=== PATIENT | male | born 1950 | race Caucasian/White ===

== ENCOUNTER → 2019-12-18 | Outpatient (CLI) | payer MEDICARE ==
[~2019-12-18] MED LIST: ASPIRIN PO; ATORVASTATIN PO; CLOP75TA PO; FEROUS SULFATE PO; HYDROCHLOROTHIAZIDE PO; LISI-170 PO; MAGN420T PO; METFORMIN PO; OMEPRAZOLE PO; TAMS-11 PO
== END | disposition home or self-care (01) ==
LOC: STAR 11:27
PROVIDERS: ATTEND Anesthesiology
DX: Z01.812 Encounter for preprocedural laboratory examination (principal); Z20.828 Contact with and (suspected) exposure to other viral communicable diseases
CPT/HCPCS: 36415; 87635

== ENCOUNTER 2019-12-23 07:42 | Day surgery (SDC) | payer MEDICARE, OTHER ==
[~2019-12-23] VITALS: Ht 180.3 cm; Wt 91.0 kg
[2019-12-23] MEDS ORDERED: MIDAZOLAM 1 MG/ML, 2ML ONE (08:35)
[2019-12-23] MEDS ORDERED: FENTANYL PF 100 MCG/2ML ONE (08:35)
[2019-12-23 08:36] VITALS: BP 169/79
[2019-12-23] MEDS ORDERED: LACTATED RINGERS 1,000 ML IV SCH (08:39)
[2019-12-23] MEDS ORDERED: METFORMIN PO (08:47)
[2019-12-23] MEDS ORDERED: ATORVASTATIN PO (08:47)
[2019-12-23] MEDS ORDERED: OMEPRAZOLE PO (08:47)
[2019-12-23] MEDS ORDERED: CLOP75TA PO (08:47)
[2019-12-23] MEDS ORDERED: LISI-170 PO (08:47)
[2019-12-23] MEDS ORDERED: ASPIRIN PO (08:47)
[2019-12-23] MEDS ORDERED: FEROUS SULFATE PO (08:47)
[2019-12-23] MEDS ORDERED: MAGN420T PO (08:47)
[2019-12-23] MEDS ORDERED: HYDROCHLOROTHIAZIDE PO (08:47)
[2019-12-23] MEDS ORDERED: TAMS-11 PO (08:47)
[2019-12-23] MEDS ORDERED: CHLORHEXIDINE 15 ML UDC MM ONE (09:00)
[2019-12-23] MEDS ORDERED: PROPOFOL 50 ML ONE (09:05)
[2019-12-23 09:10] LABS: MEAN CORPUSCULAR HEMOGLOBIN 30.4 pg (27.5-34.5); MEAN CORPUSCULAR HGB CONC 32.2 g/dL (33.2-36.2); MEAN PLATELET VOLUME 7.8 fL (7.4-10.4); PLATELET COUNT 249 x10^3/uL (130-400); RED BLOOD COUNT 3.57 x10^6/uL (4.38-5.82); RED CELL DISTRIBUTION WIDTH 17.8 % (9.4-14.8)
[2019-12-23 09:21] LABS: BASOPHILS # (AUTO) 0.08 x10^3/uL (0-0.1); BASOPHILS % (AUTO) 1 % (0-1); EOSINOPHILS # (AUTO) 0.19 x10^3/uL (0-0.4); EOSINOPHILS % (AUTO) 3 % (1-7); LYMPHOCYTES # (AUTO) 1.05 x10^3/uL (1-3.4); LYMPHOCYTES % (AUTO) 16 % (22-44); MONOCYTES # (AUTO) 0.46 x10^3/uL (0.2-0.8); MONOCYTES % (AUTO) 7 % (2-9); NEUTROPHILS # (AUTO) 4.65 x10^3/uL (1.8-6.8); NEUTROPHILS % (AUTO) 72 % (42-75)
[2019-12-23 09:22] LABS: MD NO
[2019-12-23 09:23] LABS: ALANINE AMINOTRANSFERASE 13 U/L (12-78); ALBUMIN 3.4 g/dL (3.4-5.0); ANION GAP 6 mmol/L (5-15); CALCIUM 8.9 mg/dL (8.5-10.1); CHLORIDE 108 mmol/L (98-107)
[2019-12-23 09:25] LABS: ALKALINE PHOSPHATASE 87 U/L (45-117); BILIRUBIN,TOTAL 0.5 mg/dL (0.2-1.0); CREATININE 1.04 mg/dL (0.7-1.3); TOTAL PROTEIN 6.9 g/dL (6.4-8.2)
[2019-12-23] MEDS ORDERED: HYDROmorphone 1 MG/ML, 1ML INJ IVPush PRN (09:30)
[2019-12-23] MEDS ORDERED: FENTANYL PF 100 MCG/2ML IV PRN (09:30)
[2019-12-23] MEDS ORDERED: PROMETHAZINE 25 MG/ML, 1ML IVPush PRN (09:30)
== END 2019-12-23 11:00 | disposition home or self-care (01) ==
LOC: OUT 07:42
PROVIDERS: ATTEND Internal Medicine Gastroenterology
DX: R93.2 Abnormal findings on diagnostic imaging of liver and biliary tract (principal); K31.9 Disease of stomach and duodenum, unspecified; K83.8 Other specified diseases of biliary tract; K44.9 Diaphragmatic hernia without obstruction or gangrene; K22.2 Esophageal obstruction; E11.9 Type 2 diabetes mellitus without complications; K21.9 Gastro-esophageal reflux disease without esophagitis; F15.11 Other stimulant abuse, in remission; Z88.8 Allergy status to other drugs, medicaments and biological substances; Z79.2 Long term (current) use of antibiotics; Z79.899 Other long term (current) drug therapy; Z87.891 Personal history of nicotine dependence; Z72.89 Other problems related to lifestyle; Z79.82 Long term (current) use of aspirin; Z98.890 Other specified postprocedural states
CPT/HCPCS: 36415; 43239; 43259; 80053; 82962; 85025; 88305; 93005; J2250; J2704; J7120; J3010

== ENCOUNTER 2020-08-15 08:00 | Outpatient (CLI) | payer OTHER ==
[2020-08-15] MEDS ORDERED: OMEP-110 PO (09:45)
[2020-08-15] MEDS ORDERED: CHOL10003 PO (09:45)
[2020-08-15] MEDS ORDERED: FERR-46 PO (09:45)
[2020-08-15] MEDS ORDERED: ASPI81TA45 PO (09:45)
[2020-08-15] MEDS ORDERED: VITA1TAB19 PO (09:45)
[2020-08-15] MEDS ORDERED: PSYL1POW PO (09:45)
[2020-08-15] MEDS ORDERED: ONDA4TAB7 PO (09:45)
[2020-08-15] MEDS ORDERED: ACET-1600 PO (09:45)
[2020-08-15] MEDS ORDERED: METF10007 PO (09:45)
[2020-08-15] MEDS ORDERED: HYDR25TA6 PO (09:45)
[2020-08-15] MEDS ORDERED: ATOR-2 PO (09:45)
[2020-08-15] MEDS ORDERED: vitamin B PO (10:09)
[2020-08-15] MEDS ORDERED: Zinc PO (10:09)
[2020-08-15] MEDS ORDERED: Vitamin c PO (10:09)
[2020-08-15] MEDS ORDERED: Vitamin d PO (10:09)
[2020-08-15 10:36] LABS: ALBUMIN 3.8 g/dL (3.4-5.0); ANION GAP 4 mmol/L (5-15); CHLORIDE 104 mmol/L (98-107)
[2020-08-15 10:41] LABS: ALANINE AMINOTRANSFERASE 15 U/L (12-78); ALKALINE PHOSPHATASE 54 U/L (45-117); BILIRUBIN,TOTAL 0.3 mg/dL (0.2-1.0); CREATININE 1.02 mg/dL (0.7-1.3); TOTAL PROTEIN 6.8 g/dL (6.4-8.2)
== END 2020-08-15 23:59 | disposition home or self-care (01) ==
LOC: STAR 08:00
PROVIDERS: ATTEND Internal Medicine Gastroenterology
DX: Z01.818 Encounter for other preprocedural examination (principal); R00.1 Bradycardia, unspecified; Z20.822 Contact with and (suspected) exposure to COVID-19
CPT/HCPCS: 36415; 80053; 93005; U0003; U0005

== ENCOUNTER 2020-10-20 07:00 | Day surgery (SDC) | payer OTHER ==
[~2020-10-20] VITALS: Ht 177.8 cm; Wt 77.7 kg
[~2020-10-20 07:00] MED LIST changes: +ACET-1600 PO; +ASPI81TA45 PO; +ATOR-2 PO; +CHOL10003 PO; +FERR-46 PO; +HYDR25TA6 PO; +METF10007 PO; +OMEP-110 PO; +ONDA4TAB7 PO; +PSYL1POW PO; +VITA1TAB19 PO; +Vitamin c PO; +Vitamin d PO; +Zinc PO; +vitamin B PO
[2020-10-20] MEDS ORDERED: CHLORHEXIDINE 15 ML UDC PO ONE (07:30)
[2020-10-20] MEDS ORDERED: LACTATED RINGERS 1,000 ML IV SCH (07:30)
[2020-10-20 08:00] VITALS: BP 130/76
[2020-10-20 08:26] LABS: ALANINE AMINOTRANSFERASE 23 U/L (12-78); ANION GAP 6 mmol/L (5-15); CALCIUM 9.7 mg/dL (8.5-10.1); CHLORIDE 105 mmol/L (98-107); CREATININE 1.05 mg/dL (0.7-1.3)
[2020-10-20 08:29] LABS: ALKALINE PHOSPHATASE 55 U/L (45-117); BILIRUBIN,TOTAL 0.7 mg/dL (0.2-1.0); TOTAL PROTEIN 7.3 g/dL (6.4-8.2)
[2020-10-20] MEDS ORDERED: OMNIPAQUE 350 MG/ML, 50 ML BOTTLE ONE (09:28)
[2020-10-20] MEDS ORDERED: MIDAZOLAM 1 MG/ML, 2ML ONE (09:35)
[2020-10-20] MEDS ORDERED: FENTANYL PF 100 MCG/2ML ONE ×2 (09:36→11:12)
[2020-10-20] MEDS ORDERED: ONDANSETRON 2MG/ML, 2ML IVPush PRN (10:00)
[2020-10-20] MEDS ORDERED: HYDROmorphone 1 MG/ML, 1ML INJ IVPush PRN (10:00)
[2020-10-20] MEDS ORDERED: MEPERIDINE/PF 25MG/0.5ML IVPush PRN (10:00)
[2020-10-20] MEDS ORDERED: OXYcodone 5 MG/5 ML ORAL.SOL UDC PO PRN (10:00)
[2020-10-20] MEDS ORDERED: PROMETHAZINE 25 MG/ML, 1ML IVPush PRN (10:00)
[2020-10-20] MEDS ORDERED: FENTANYL PF 100 MCG/2ML IV PRN (10:00)
[2020-10-20] MEDS ORDERED: HYDROcodone/APAP 7.5-325MG/15ML UDC PO PRN (10:00)
[2020-10-20] MEDS ORDERED: ONDANSETRON 2MG/ML, 2ML ONE (11:12)
== END 2020-10-20 12:35 | disposition home or self-care (01) ==
LOC: OUT 07:00
PROVIDERS: ATTEND Internal Medicine Gastroenterology
DX: K80.51 Calculus of bile duct without cholangitis or cholecystitis with obstruction (principal); K29.50 Unspecified chronic gastritis without bleeding; K44.9 Diaphragmatic hernia without obstruction or gangrene; D50.9 Iron deficiency anemia, unspecified; K21.9 Gastro-esophageal reflux disease without esophagitis; K76.9 Liver disease, unspecified; J44.9 Chronic obstructive pulmonary disease, unspecified; I10 Essential (primary) hypertension; E78.5 Hyperlipidemia, unspecified; E11.9 Type 2 diabetes mellitus without complications; Z79.02 Long term (current) use of antithrombotics/antiplatelets; Z79.82 Long term (current) use of aspirin; Z79.84 Long term (current) use of oral hypoglycemic drugs; Z79.899 Other long term (current) drug therapy; Z88.8 Allergy status to other drugs, medicaments and biological substances; Z91.011 Allergy to milk products
CPT/HCPCS: 36415; 43239; 43259; 43262; 43264; 74328; 80053; 88305; C1769; J2250; J3010; J7120; Q9967